=== PATIENT | female | born 1945 | race Caucasian/White ===

== ENCOUNTER 2017-04-25 18:42 | Emergency (ER) | payer MEDICARE ==
[2017-04-25 19:39] VITALS: BP 198/96
[2017-04-25] MEDS ORDERED: Diphtheria,Pertussis(Acell),Tetanus Vaccine 0.5 ML SDV IM ONE (19:55)
[2017-04-25] MEDS ORDERED: Lidocaine 1% PF 2 ML SDV INJECT ONE (19:55)
--- NOTE | 2017-04-25 20:01 | EDM.PDOC ---
ED HPI GENERAL MEDICAL PROBLEM - General Chief Complaint: General Stated Complaint: FISH HOOK Time Seen by Provider: 04/25/17 19:50 Source of Information: Reports: Patient History Limitations: Reports: No Limitations - History of Present Illness INITIAL COMMENTS - FREE TEXT/NARRATIVE: 71 yo female got a single hayley of a treble hook in the L index finger before arrival. Here for removal. Tetanus is not UTD. 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: Other (see below) (covered other hooks with tape to prevent impalement by them.) Left 2-Index finger Pain Score (Numeric/FACES): 5 - Related Data Allergies Allergy/AdvReac Type Severity Reaction Status Date / Time No Known Allergies Allergy Verified 04/25/17 19:49 Home Meds: Home Meds Simvastatin [Zocor] 10 mg PO DAILY 04/25/17 [History] Past Medical History Cardiovascular History: Reports: High Cholesterol 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 History: Reports: Dysfunctional Uterine Bleeding - Past Surgical History Female Surgical History: Reports: Hysterectomy Social & Family History - Tobacco Use Smoking Status *Q: Former Smoker Used Tobacco, but Quit: Yes Month Tobacco Last Used: 27 ED ROS GENERAL - Review of Systems Review Of Systems: See Below Constitutional: Reports: No Symptoms Skin: Reports: Wound (puncture with a fish hook in finger) Neurological: Reports: No Symptoms ED EXAM, GENERAL - Physical Exam Exam: See Below Exam Limited By: No Limitations General Appearance: Alert, WD/WN, No Apparent Distress Extremities: Other (fish hook L index finger) Neurological: Alert, Oriented, CN II-XII Intact, Normal Cognition, No Motor/ Sensory Deficits Psychiatric: Normal Affect, Normal Mood Skin Exam: Warm, Dry, Intact, Normal Color, No Rash, Other (puncture wound with retained hook to L index proximal phalanx. No active bleeding currently. No sign of infection. ) Lymphatic: No Adenopathy Course - Vital Signs Text/Narrative:: Adacel IM Local infiltration with 1.5 ml of 1% lidocaine. Last Recorded V/S: Last Vital Signs Temp 35.4 C 04/25/17 19:47 Pulse 70 04/25/17 19:47 Resp 16 04/25/17 19:47 BP 198/96 H 04/25/17 19:47 Pulse Ox 98 04/25/17 19:47 - Orders/Labs/Meds Orders: Active Orders 24 hr Category Date Time Status Vaccines to be Administered [RC] PER UNIT ROUTINE Care 04/25/17 19:55 Active Meds: Medications Discontinued Medications Generic Name Dose Route Start Last Admin Trade Name Maren PRN Reason Stop Dose Admin Bacitracin 1 dose 04/25/17 20:18 Bacitracin Oint 1 Gm TOP 04/25/17 20:19 ONETIME ONE Diphtheria/Tetanus/Acell Pertussis 0.5 ml 04/25/17 19:55 04/25/17 20:08 Adacel IM 04/25/17 19:56 0.5 ml .ONCE ONE Administration Lidocaine HCl 2 ml 04/25/17 19:55 Xylocaine-Mpf 1% INJECT 04/25/17 19:56 ONETIME ONE Lidocaine HCl 5 ml 04/25/17 20:00 04/25/17 20:09 Xylocaine-Mpf 1% INJECT 04/25/17 20:01 5 ml ONETIME ONE Administration Departure - Departure Time of Disposition: 20:20 Disposition: Home, Self-Care 01 Condition: Good Clinical Impression: Fish hook injury of finger of left hand Qualifiers: Encounter type: initial encounter Qualified Code(s): S69.92XA - Unspecified injury of left wrist, hand and finger(s), initial encounter - Discharge Information Instructions: Puncture Wound, VIS, Diphtheria, Tetanus, and Pertussis (DTaP) - CDC Referrals: PCP,None [Primary Care Provider] - Forms: ED Department Discharge Additional Instructions: Clean wound twice daily with soap and water. Dry. Apply Bacitracin ointment and a new dressing. Recheck for signs of infection. Use acetaminophen as needed for pain relief. Elevate if bleeding recurs and apply direct pressure. - My Orders Last 24 Hours: My Active Orders 04/25/17 19:55 Vaccines to be Administered [RC] PER UNIT ROUTINE - Assessment/Plan Last 24 Hours: My Active Orders 04/25/17 19:55 Vaccines to be Administered [RC] PER UNIT ROUTINE
[2017-04-25] MEDS ORDERED: Bacitracin Oint 1 GM U/D Packet TOP ONE (20:18)
== END 2017-04-25 20:31 | disposition home or self-care (01) ==
LOC: JP.ED 18:42
DX: S60.451A Superficial foreign body of left index finger, initial encounter (principal); E78.00 Pure hypercholesterolemia, unspecified; Z23 Encounter for immunization; Z90.710 Acquired absence of both cervix and uterus; W45.8XXA Other foreign body or object entering through skin, initial encounter
CPT/HCPCS: 90471; 90715; 99283; 99283-25

== ENCOUNTER 2021-04-24 18:47 | Inpatient (IN) | payer MEDICARE ==
--- NOTE | 2021-04-24 19:01 | EDM.PDOC ---
ED HPI GENERAL MEDICAL PROBLEM - General Chief Complaint: Neuro Symptoms/Deficits Stated Complaint: SLURRED SPEECH Time Seen by Provider: 04/24/21 19:00 Source of Information: Reports: Patient, RN. Denies: Old Records History Limitations: Reports: Other (no old records) - History of Present Illness INITIAL COMMENTS - FREE TEXT/NARRATIVE: 75 yo female from [facility] presents with intermittent slurred speech today. No pHx of afib. First episode lasted about 90 min and cleared by 1630h, now returned just before arrival. Took an ASA before arrival. is on Zocor for lipids. No pHx of TIA or CVA. Brother has afib. BP usually well controlled in the 120's on Atenolol. No LLOYD. No CP. Not aware of a rapid or irregular heart beat. Is aware of her speech not being normal. No issues with walking, or extremity weakness or numbness. Had some drooling with her initial episode today, not currently. Has a vacation home on [facility]. Here with her son who is an ER doctor. Onset: Today, Sudden Onset Date: 04/24/21 Onset Time: 15:00 Duration: Waxing/Waning Location: Reports: Face (drooling and slurred speech only) Quality: Reports: Other (pain not reported) Severity: Mild Improves with: Reports: Other (improved on its own earlier, now back but not as severe. 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 MACHINE: Reports: Aspirin (325 mg) - Related Data Allergies Allergy/AdvReac Type Severity Reaction Status Date / Time No Known Allergies Allergy Verified 04/25/17 19:49 Home Meds: Home Meds Aspirin 325 mg PO ASDIRECTED PRN 04/24/21 [History] atenoloL [Atenolol] 50 mg PO DAILY 04/24/21 [History] atorvaSTATin [Lipitor] 20 mg PO DAILY 04/24/21 [History] buPROPion [Wellbutrin] 150 mg PO DAILY 04/24/21 [History] Past Medical History Cardiovascular History: Reports: High Cholesterol 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 Denies: Confusion, Dizziness, Headache, Numbness, Paresthesia, Pre-Existing Deficit, Seizure, Syncope, Tingling, Difficulty Walking, Weakness, Gait Disturbance Psychiatric: Reports: No Symptoms ED EXAM, NEURO - Physical Exam Exam: See Below Exam Limited By: No Limitations General Appearance: Alert, WD/WN, No Apparent Distress Eye Exam: Bilateral Eye: Normal Inspection Ears: Normal External Exam, Normal Canal, Hearing Grossly Normal, Normal TMs Nose: Normal Inspection, No Blood Throat/Mouth: Normal Inspection, Normal Lips, Normal Oropharynx, Normal Voice, No Airway Compromise Head Exam: Atraumatic, Normocephalic Neck: Normal Inspection Respiratory/Chest: No Respiratory Distress, Lungs Clear, Normal Breath Sounds, No Accessory Muscle Use Cardiovascular: No Edema, Tachycardia, Irregularly Irregular GI/Abdominal: Soft, Non-Tender, No Distention. No: Distended Neurological: Alert, Normal Mood/Affect, Normal Dorsiflexion, CN II-XII Intact, Normal Plantar Flexion, Normal Gait, Oriented x 3, Other (speech is slightly slurred, no facial droop. Stroke scale 1.). No: No Motor/Sensory Deficits (slightly slurred speech), Babinski DTR: 2+: Bicep (R), Bicep (L), Tricep (R), Tricep (L), Patella (R), Patella (L), Achilles (R), Achilles (L) Back Exam: Normal Inspection Extremities: Normal Inspection, Normal Range of Motion, Non-Tender, No Pedal Edema Psychiatric: Normal Affect, Normal Mood Skin Exam: Warm, Dry, Intact, Normal Color, No Rash Course - Vital Signs Text/Narrative:: [facility] in [place], [place] called @ 2114h, Dr. Ramirez(neuro) called back at Dr. Damon called @ Last Recorded V/S: Last Vital Signs Temp 35.9 C L 07/24/21 18:58 Pulse 130 H 04/24/21 21:26 Resp 27 H 04/24/21 21:25 BP 146/89 H 04/24/21 21:26 Pulse Ox 92 L 04/24/21 21:25 - Orders/Labs/Meds Orders: Active Orders 24 hr Category Date Time Status Cardiac Monitoring [RC] .As Directed Care 04/24/21 18:59 Active Iopamidol [Isovue-370 (76%)] Med 04/24/21 19:30 Active 100 ml IV . DIRECTED Sodium Chloride 0.9% [Normal Saline] 100 ml Med 04/24/21 19:30 Active IV ASDIRECTED Sodium Chloride 0.9% [Saline Flush] Med 04/24/21 19:12 Active 10 ml FLUSH ASDIRECTED PRN Saline Lock Insert [OM.PC] Routine Oth 04/24/21 19:12 Ordered Medication Orders Sodium Chloride (Normal Saline) 100 mls @ 3.5 mls/sec IV ASDIRECTED CAROL Last Admin: 04/24/21 20:02 Dose: 4 mls/sec Documented by: BINDU Iopamidol (Iopamidol 755 Mg/Ml 100 Ml Bottle) 100 ml IV . DIRECTED CAROL Last Admin: 04/24/21 20:01 Dose: 100 ml Documented by: BINDU Sodium Chloride (Sodium Chloride 0.9% 10 Ml Syringe) 10 ml FLUSH ASDIRECTED PRN PRN Reason: Keep Vein Open Last Admin: 04/24/21 19:18 Dose: 10 ml Documented by: JACKELINE Labs: Laboratory Tests 04/24/21 04/24/21 Range/Units 18:59 19:16 WBC 8.2 (4.5-11.0) K/uL RBC 4.48 (3.30-5.50) M/uL Hgb 11.3 L (12.0-15.0) g/dL Hct 36.4 (36.0-48.0) % MCV 81 (80-98) fL MCH 25 L (27-31) pg MCHC 31 L (32-36) % Plt Count 401 H (150-400) K/uL Sodium 141 (140-148) mmol/L Potassium 4.1 (3.6-5.2) mmol/L Chloride 105 (100-108) mmol/L Carbon Dioxide 27 (21-32) mmol/L Anion Gap 9.2 (5.0-14.0) mmol/L BUN 25 H (7-18) mg/dL Creatinine 1.0 (0.6-1.0) mg/dL Est Cr Clr Drug Dosing 43.07 mL/min Estimated GFR (MDRD) 54 L (>60) Glucose 128 H (74-106) mg/dL Calcium 8.7 (8.5-10.1) mg/dL Troponin I < 0.017 (0.000-0.056) ng/mL TSH, Ultra Sensitive 1.676 (0.358-3.740) uIU/mL Meds: Medications Generic Name Dose Route Start Last Admin Trade Name Maren PRN Reason Stop Dose Admin Sodium Chloride 100 mls @ 3.5 mls/sec 04/24/21 19:30 04/24/21 20:02 Normal Saline IV 4 mls/sec ASDIRECTED CAROL Administration Iopamidol 100 ml 04/24/21 19:30 04/24/21 20:01 Iopamidol 755 Mg/Ml 100 Ml Bottle IV 100 ml . DIRECTED CAROL Administration Sodium Chloride 10 ml 04/24/21 19:12 04/24/21 19:18 Sodium Chloride 0.9% 10 Ml Syringe FLUSH 10 ml ASDIRECTED PRN Administration Keep Vein Open Discontinued Medications Generic Name Dose Route Start Last Admin Trade Name Maren PRN Reason Stop Dose Admin Apixaban 5 mg 04/24/21 21:34 04/24/21 21:49 Apixaban 5 Mg Tab PO 04/24/21 21:35 5 mg ONETIME ONE Administration Atenolol 25 mg 04/24/21 19:18 04/24/21 20:17 Atenolol 25 Mg Tab PO 04/24/21 19:19 25 mg ONETIME ONE Administration Atenolol 25 mg 04/24/21 21:19 04/24/21 21:26 Atenolol 25 Mg Tab PO 04/24/21 21:20 25 mg ONETIME ONE Administration Sodium Chloride 10 ml 04/24/21 19:17 04/24/21 20:01 Sodium Chloride 0.9% 10 Ml Syringe FLUSH 04/24/21 19:18 10 ml ONETIME ONE Administration - Radiology Interpretation Free Text/Narrative:: Head CT scan- IMPRESSION: 1. No acute intracranial hemorrhage. 2. No mass lesions or shift of the midline structures. 3. Evidence of small vessel disease. Please note that all CT scans at this facility use dose modulation, iterative reconstruction, and/or weight-based dosing when appropriate to reduce radiation dose to as low as reasonably achievable. Dictated by Arash Poe MD @ 04/24/2021 8:04:31 PM Angio Head and Neck- Impression: HEAD CTA: 1. 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 No hemodynamically significant stenosis within the posterior circulation. 2. No hemodynamically significant stenosis anterior circulation. NECK CTA: 1. No hemodynamically significant extracranial carotid or vertebral stenosis. Dictated by Frantz Almeida MD @ 04/24/2021 9:01:[address] Results Date: 04/24/21 CT Results Time: 20:17 Departure - Departure Time of Disposition: 22:00 Disposition: Admitted As Inpatient 65 Condition: Fair Clinical Impression: Atrial fibrillation with RVR CVA (cerebral vascular accident) Qualifiers: CVA mechanism: unspecified Qualified Code(s): I63.9 - Cerebral infarction, unspecified - Discharge Information *PRESCRIPTION DRUG MONITORING PROGRAM REVIEWED*: Not Applicable *COPY OF PRESCRIPTION DRUG MONITORING REPORT IN PATIENT TIFFANIE: Not Applicable Referrals: PCP,None [Primary Care Provider] - Forms: ED Department Discharge Sepsis Event Note (ED) - Focused Exam Vital Signs: Vital Signs Temp Pulse Pulse Resp BP BP Pulse Ox 04/24/21 21:26 130 H 146/89 H 04/24/21 21:25 27 H 146/89 H 92 L 04/24/21 21:19 66 25 H 152/94 H 92 L 04/24/21 20:39 91 22 H 159/94 H 93 L 04/24/21 20:25 20 159/94 H 94 L 04/24/21 20:17 120 H 21 H 157/85 H 157/85 H 94 L 04/24/21 19:22 83 126/86 04/24/21 18:58 35.9 C L 127 H 22 H 156/82 H 97 - My Orders Last 24 Hours: My Active Orders 04/24/21 18:59 Cardiac Monitoring [RC] .As Directed 04/24/21 19:12 Sodium Chloride 0.9% [Saline Flush] 10 ml FLUSH ASDIRECTED PRN Saline Lock Insert [OM.PC] Routine 04/24/21 19:30 Iopamidol [Isovue-370 (76%)] 100 ml IV . DIRECTED Sodium Chloride 0.9% [Normal Saline] 100 ml IV ASDIRECTED - Assessment/Plan Last 24 Hours: My Active Orders 04/24/21 18:59 Cardiac Monitoring [RC] .As Directed 04/24/21 19:12 Sodium Chloride 0.9% [Saline Flush] 10 ml FLUSH ASDIRECTED PRN Saline Lock Insert [OM.PC] Routine 04/24/21 19:30 Iopamidol [Isovue-370 (76%)] 100 ml IV . DIRECTED Sodium Chloride 0.9% [Normal Saline] 100 ml IV ASDIRECTED
[2021-04-24] MEDS ORDERED: Sodium Chloride 0.9% 10 ML Syringe FLUSH PRN (19:12)
[2021-04-24] MEDS ORDERED: Sodium Chloride 0.9% 10 ML Syringe FLUSH ONE (19:17)
[2021-04-24] MEDS ORDERED: Atenolol 25 MG Tab PO ONE ×2 (19:18→21:19)
[2021-04-24] MEDS ORDERED: Iopamidol 755 Mg/ML 100 ML Bottle IV SCH (19:30)
[2021-04-24] MEDS ORDERED: Sodium Chloride 0.9% 100 ML IV SCH (19:30)
--- NOTE | 2021-04-24 20:06 | CRLCT ---
For Patients: As a result of the Century Cures Act, medical imaging exams and procedure reports are released immediately into your electronic medical record. You may view this report before your referring provider. If you have questions, please contact your health care provider. INDICATION: Slurred speech. COMPARISON: None. TECHNIQUE: CT head without intravenous contrast; coronal and sagittal reformats. FINDINGS: Mild brain atrophy. No intracranial hemorrhage. No mass lesions or shift of the midline structures. The calvarium is unremarkable. Periventricular low densities secondary to small vessel disease. IMPRESSION: 1. No acute intracranial hemorrhage. 2. No mass lesions or shift of the midline structures. 3. Evidence of small vessel disease. Please note that all CT scans at this facility use dose modulation, iterative reconstruction, and/or weight-based dosing when appropriate to reduce radiation dose to as low as reasonably achievable. Dictated by Arash Poe MD @ 04/24/2021 8:04:[address] Arash Poe @ Apr 24 2021 8:04PM
--- NOTE | 2021-04-24 21:02 | CRLCT ---
For Patients: As a result of the Century Cures Act, medical imaging exams and procedure reports are released immediately into your electronic medical record. You may view this report before your referring provider. If you have questions, please contact your health care provider. INDICATION: Acute stroke, slurred speech. TECHNIQUE: After standard noncontrast head CT, high resolution axial CT images acquired through the head and neck following rapid intravenous administration of iodinated contrast. Multiplanar MIPS of cranial and cervical vasculature performed. FINDINGS: Noncontrast head CT: There is no intracranial hemorrhage or fluid collection. The hodge-white matter differentiation is maintained. The ventricles are of normal morphology. The basal cisterns are clear. CTA head: There is normal filling of the intracranial vasculature; i.e. there is no large vessel occlusion or significant intracranial stenosis. There is no cerebral aneurysm or evidence for vascular malformation. CTA neck: Carotid arteries: There is atherosclerotic plaque. There is no significant stenosis by NASCET criteria. There is no evidence for dissection. Vertebral arteries: There is no significant stenosis. There is no evidence for dissection. The soft tissues of the neck are within normal limits. The cervical spine is in normal alignment. Degenerative changes are noted in the cervical spine. The lung apices are clear. IMPRESSION: No large vessel occlusion. No acute intracranial abnormality at CT/CCA. Carotid atherosclerotic disease without significant stenosis. Joaquin Hernandez MD Neurointerventional [employer] [facility] [facility] Please note that all CT scans at this facility use dose modulation, iterative reconstruction, and/or weight-based dosing when appropriate to reduce radiation dose to as low as reasonably achievable. Dictated by Joaquin Hernandez MD @ 04/25/2021 4:14:[address] Joaquin Hernandez @ Apr 25 2021 4:14AM
[2021-04-24] MEDS ORDERED: Apixaban 5 MG Tab PO ONE (21:34)
[2021-04-24] MEDS ORDERED: diphenhydrAMINE 25 MG Cap PO PRN (22:42)
[2021-04-24] MEDS ORDERED: Melatonin 3 MG Tab PO PRN (22:42)
[2021-04-24] MEDS ORDERED: Acetaminophen 325 MG Tab PO PRN (22:42)
[2021-04-24] MEDS ORDERED: Morphine 2 MG/ML SYRINGE IVPUSH PRN (22:42)
[2021-04-24] MEDS ORDERED: Ondansetron 4 MG Tab.DIS PO PRN (22:42)
[2021-04-24] MEDS ORDERED: Bisacodyl 5 MG Tab PO PRN (22:42)
[2021-04-24] MEDS ORDERED: LORazepam 2 MG/ML SDV IV PRN (22:42)
[2021-04-24] MEDS ORDERED: oxyCODONE 5 MG Tab PO PRN (22:42)
[2021-04-24] MEDS ORDERED: Docusate Sodium 100 MG Cap PO PRN (22:42)
[2021-04-24] MEDS ORDERED: Albuterol 0.083% 2.5 MG/3 ML Neb Soln NEB PRN (22:42)
[2021-04-24] MEDS ORDERED: Sodium Chloride 0.9% 1,000 ML IV SCH (22:42)
--- NOTE | 2021-04-24 23:04 | PCM.HP.2 ---
H&P History of Present Illness - General Date of Service: 04/24/21 Admit Problem/Dx: Admission Diagnosis/Problem Admission Diagnosis/Problem Atrial fibrillation with rapid ventricular response Source of Information: Patient, Family (Dr. Brown and [place]) History Limitations: Reports: No Limitations - History of Present Illness Initial Comments - Free Text/Narative: Chief Complaint: Intermittent slurred speech This is a 75 year old female in general good health, reports to ER with her Son Dr. Brown (part-time at [facility]) and [place]. She reports she had a busy day - hosting her family and 6 teenage girls at their [place] home on [address]. She finally got to sit down at about 3 pm and notice she was drooling and very speech was impaired. She waited about an hour before telling her Son about her symptoms. They called for an ambulance and getting ready when all of her symptoms resolved. They cancelled the ambulance and drove to ER. She got here at 5 pm and her slurred speech returned. A short time later symptoms resolved and she reports feeling fine. Denies any chest pain, chest pressure, headache, shortness of breath or any other symptoms Past Medical Hx. November 2020- unexplained shortness of breath during the night. She had Echo and Stress test and EKG- which were all normal. Medications Wellbutrin 150 mg daily ASA 325 mg daily Lipitor 20 mg daily Atenolol 50 mg daily Onset of Symptoms: Reports: Today Symptom Onset Date: 04/24/21 Symptom Onset Time: 15:00 Duration of Symptoms: Reports: Waxing/Waning Location: Reports: Generalized (intermittent slurred speech.) Improves with: Reports: None Worsens with: Reports: None Associated Symptoms: Reports: No Other Symptoms - Related Data Allergies/Adverse Reactions: Allergies Allergy/AdvReac Type Severity Reaction Status Date / Time No Known Allergies Allergy Verified 04/25/17 19:49 Home Medications: Home Meds Aspirin 325 mg PO ASDIRECTED PRN 04/24/21 [History] atenoloL [Atenolol] 50 mg PO DAILY 04/24/21 [History] atorvaSTATin [Lipitor] 20 mg PO DAILY 04/24/21 [History] buPROPion [Wellbutrin] 150 mg PO DAILY 04/24/21 [History] Past Medical History Cardiovascular History: Reports: High Cholesterol LEASING AGENT History: Reports: Dysfunctional Uterine Bleeding - Past Surgical History Female Surgical History: Reports: Hysterectomy Social & Family History - Tobacco Use Tobacco Use Status *Q: Never Tobacco User - Caffeine Use Caffeine Use: Reports: None - Recreational Drug Use Recreational Drug Use: No - Living Situation & Occupation Living situation: Reports: 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 Lives with Delmar in [place], [place]. and has a summer [place] home on [place], [place]. Two Son Pool and Stephan) H&P Review of Systems - Review of Systems: Review Of Systems: See Below General: Reports: No Symptoms HEENT: Reports: No Symptoms, Glasses Pulmonary: Reports: No Symptoms Cardiovascular: Reports: No Symptoms Gastrointestinal: Reports: No Symptoms Genitourinary: Reports: No Symptoms Musculoskeletal: Reports: No Symptoms Skin: Reports: No Symptoms Psychiatric: Reports: No Symptoms Neurological: Reports: No Symptoms Hematologic/Lymphatic: Reports: No Symptoms Immunologic: Reports: No Symptoms Exam - Exam Exam: See Below - Vital Signs Vital Signs: Last Vital Signs Temp 96.7 F L 04/24/21 18:58 Pulse 83 04/24/21 22:21 Resp 24 H 04/24/21 22:21 BP 145/80 H 04/24/21 22:21 Pulse Ox 93 L 04/24/21 22:21 Weight: 170 lb - Exam Quality Assessment: DVT Prophylaxis General: Alert, Oriented, Cooperative, Other (neat and well groomed, pleasant adult female) HEENT: PERRLA, Hearing Intact, Mucosa Moist & [place], Nares Patent, Normal Nasal Septum, Posterior Pharynx Clear, Conjunctiva Clear, EOMI, EACs Clear, TMs Clear Neck: Supple Lungs: Clear to Auscultation, Normal Respiratory Effort Cardiovascular: Irregular Rhythm GI/Abdominal Exam: Normal Bowel Sounds, Soft, Non-Tender, No Organomegaly, No Distention, No Abnormal Bruit, No Mass, Pelvis Stable (Female) Exam: Deferred Rectal (Female) Exam: Deferred Back Exam: Normal Inspection, Full Range of Motion, NT Extremities: Normal Inspection, Normal Range of Motion, Non-Tender, No Pedal Edema, Normal Capillary Refill Peripheral Pulses: 2+: Radial (L), Radial (R), Dorsalis Pedis (L), Dorsalis Pedis (R) Skin: Warm, Dry, Intact Neurological: Cranial Nerves Intact, Reflexes Equal Bilateral, Strength Equal Bilateral Neuro Extensive - Mental Status: Alert, Oriented x3, Normal Mood/Affect, Normal Cognition Neuro Extensive - Motor, Sensory, Reflexes: CN II-XII Intact, Normal Gait, Normal Reflexes Psychiatric: Alert, Normal Affect, Normal Mood - Patient Data Lab Results Last 24 hrs: Laboratory Results - last 24 hr 04/24/21 04/24/21 04/24/21 Range/Units 18:59 19:16 22:07 WBC 8.2 (4.5-11.0) K/uL RBC 4.48 (3.30-5.50) M/uL Hgb 11.3 L (12.0-15.0) g/dL Hct 36.4 (36.0-48.0) % MCV 81 (80-98) fL MCH 25 L (27-31) pg MCHC 31 L (32-36) % Plt Count 401 H (150-400) K/uL Sodium 141 (140-148) mmol/L Potassium 4.1 (3.6-5.2) mmol/L Chloride 105 (100-108) mmol/L Carbon Dioxide 27 (21-32) mmol/L Anion Gap 9.2 (5.0-14.0) mmol/L BUN 25 H (7-18) mg/dL Creatinine 1.0 (0.6-1.0) mg/dL Est Cr Clr Drug Dosing 43.07 mL/min Estimated GFR (MDRD) 54 L (>60) Glucose 128 H (74-106) mg/dL Calcium 8.7 (8.5-10.1) mg/dL Troponin I < 0.017 (0.000-0.056) ng/mL Amylase (25-115) U/L Lipase (73-393) U/L TSH, Ultra Sensitive 1.676 (0.358-3.740) uIU/mL Urine Color Yellow (YELLOW) Urine Appearance Clear (CLEAR) Urine pH 5.5 (5.0-8.0) Ur Specific [place] 1.015 (1.008-1.030) Urine Protein Negative (NEGATIVE) mg/dL Urine Glucose (UA) Negative (NEGATIVE) mg/dL Urine Ketones Negative (NEGATIVE) mg/dL Urine Occult Blood Trace-intact H (NEGATIVE) Urine Nitrite Negative (NEGATIVE) Urine Bilirubin Negative (NEGATIVE) Urine Urobilinogen 0.2 (0.2-1.0) EU/dL Ur Leukocyte Esterase Negative (NEGATIVE) Urine RBC 0-5 (0-5) Urine WBC 0-5 (0-5) Ur Epithelial Cells Rare Amorphous Sediment Not seen Urine Bacteria Few Urine Mucus Not seen 04/24/21 Range/Units 22:07 WBC (4.5-11.0) K/uL RBC (3.30-5.50) M/uL Hgb (12.0-15.0) g/dL Hct (36.0-48.0) % MCV (80-98) fL MCH (27-31) pg MCHC (32-36) % Plt Count (150-400) K/uL Sodium (140-148) mmol/L Potassium (3.6-5.2) mmol/L Chloride (100-108) mmol/L Carbon Dioxide (21-32) mmol/L Anion Gap (5.0-14.0) mmol/L BUN (7-18) mg/dL Creatinine (0.6-1.0) mg/dL Est Cr Clr Drug Dosing mL/min Estimated GFR (MDRD) (>60) Glucose (74-106) mg/dL Calcium (8.5-10.1) mg/dL Troponin I (0.000-0.056) ng/mL Amylase 61 (25-115) U/L Lipase 138 (73-393) U/L TSH, Ultra Sensitive (0.358-3.740) uIU/mL Urine Color (YELLOW) Urine Appearance (CLEAR) Urine pH (5.0-8.0) Ur Specific [place] (1.008-1.030) Urine Protein (NEGATIVE) mg/dL Urine Glucose (UA) (NEGATIVE) mg/dL Urine Ketones (NEGATIVE) mg/dL Urine Occult Blood (NEGATIVE) Urine Nitrite (NEGATIVE) Urine Bilirubin (NEGATIVE) Urine Urobilinogen (0.2-1.0) EU/dL Ur Leukocyte Esterase (NEGATIVE) Urine RBC (0-5) Urine WBC (0-5) Ur Epithelial Cells Amorphous Sediment Urine Bacteria Urine Mucus Result Diagrams: 04/24/21 18:59 04/24/21 19:16 Sepsis Event Note - Evaluation Sepsis Screening Result: No Definite Risk - Focused Exam Vital Signs: Vital Signs Temp Pulse Pulse Resp BP BP Pulse Ox 04/24/21 22:21 83 24 H 145/80 H 93 L 04/24/21 21:26 130 H 146/89 H 04/24/21 21:25 27 H 146/89 H 92 L 04/24/21 21:19 66 25 H 152/94 H 92 L 04/24/21 20:39 91 22 H 159/94 H 93 L 04/24/21 20:25 20 159/94 H 94 L 04/24/21 20:17 120 H 21 H 157/85 H 157/85 H 94 L 04/24/21 19:22 83 126/86 04/24/21 18:58 96.7 F L 127 H 22 H 156/82 H 97 - Problem List (1) Atrial fibrillation with RVR SNOMED Code(s): 517274783687632 ICD Code: I48.91 - UNSPECIFIED ATRIAL FIBRILLATION Status: Acute Priority: High Current Visit: Yes (2) CVA (cerebral vascular accident) SNOMED Code(s): 994957467 ICD Code: I63.9 - CEREBRAL INFARCTION, UNSPECIFIED Status: Acute Priority: High Current Visit: Yes Qualifiers: CVA mechanism: unspecified Qualified Code(s): I63.9 - Cerebral infarction, unspecified Problem List Initiated/Reviewed/Updated: Yes Orders Last 24hrs: Active Orders 24 hr Category Date Time Status Cardiac Monitoring [RC] .As Directed Care 04/24/21 18:59 Active Cardiac Monitoring [RC] CONTINUOUS Care 04/24/21 22:42 Active Intake and Output [RC] QSHIFT Care 04/24/21 22:42 Active Neuro Check [RC] Q4HR Care 04/24/21 22:42 Active Notify Provider Vital Signs [RC] ASDIRECTED Care 04/24/21 22:42 Active Oxygen Therapy [RC] PRN Care 04/24/21 22:42 Active Pulse Oximetry [RC] PRN Care 04/24/21 22:42 Active RT Aerosol Therapy [RC] ASDIRECTED Care 04/24/21 22:42 Active Up With Assistance [RC] ASDIRECTED Care 04/24/21 22:42 Active VTE/DVT Education [RC] Per Unit Routine Care 04/24/21 22:42 Active Vital Signs [RC] Q4H Care 04/24/21 22:42 Active Spiritual Care Follow Up [CONS] Routine Cons 04/24/21 22:52 Ordered Regular Diet [DIET] Diet 04/24/21 Dinner Active CBC WITH AUTO DIFF [HEME] AM Lab 04/25/21 05:11 Ordered COMPREHENSIVE METABOLIC PN,CMP [CHEM] AM Lab 04/25/21 05:11 Ordered Acetaminophen [TylenoL] Med 04/24/21 22:42 Active 650 mg PO Q4H PRN Albuterol [Proventil Neb Soln] Med 04/24/21 22:42 Active 2.5 mg NEB Q4H PRN Docusate Sodium [Colace] Med 04/24/21 22:42 Active 100 mg PO BID PRN Iopamidol [Isovue-370 (76%)] Med 04/24/21 19:30 Active 100 ml IV . DIRECTED LORazepam [Ativan] Med 04/24/21 22:42 Active 1 mg IV Q6H PRN Melatonin Med 04/24/21 22:42 Active 6 mg PO BEDTIME PRN Morphine Med 04/24/21 22:42 Active 2 mg IVPUSH Q2H PRN Ondansetron [Zofran ODT] Med 04/24/21 22:42 Active 4 mg PO Q6H PRN Pantoprazole [ProTONIX IV] Med 04/25/21 09:00 Active 40 mg IV DAILY Sodium Chloride 0.9% [Normal Saline] 1,000 ml Med 04/24/21 22:42 Active IV ASDIRECTED Sodium Chloride 0.9% [Normal Saline] 100 ml Med 04/24/21 19:30 Active IV ASDIRECTED Sodium Chloride 0.9% [Saline Flush] Med 04/24/21 19:12 Active 10 ml FLUSH ASDIRECTED PRN atenoloL [Tenormin] Med 04/25/21 09:00 Active 50 mg PO DAILY atorvaSTATin [Lipitor] Med 04/25/21 09:00 Active 20 mg PO DAILY bisacodyL [Dulcolax] Med 04/24/21 22:42 Active 5 mg PO DAILY PRN buPROPion [Wellbutrin] Med 04/25/21 09:00 Active 150 mg PO DAILY diphenhydrAMINE [Benadryl] Med 04/24/21 22:42 Active 25 mg PO BEDTIME PRN oxyCODONE Med 07/24/21 22:42 Active 5 mg PO Q4H PRN Saline Lock Insert [OM.PC] Routine Oth 04/24/21 19:12 Ordered Resuscitation Status Routine Resus Stat 04/24/21 22:16 Ordered Medication Orders Acetaminophen (Acetaminophen 325 Mg Tab) 650 mg PO Q4H PRN PRN Reason: Pain (Mild 1-3)/fever Albuterol (Albuterol 0.083% 2.5 Mg/3 Ml Neb Soln) 2.5 mg NEB Q4H PRN PRN Reason: Shortness Of Breath/wheezing Atenolol (Atenolol 25 Mg Tab) 50 mg PO DAILY [facility]OL Atorvastatin Calcium (Atorvastatin 20 Mg Tab) 20 mg PO DAILY [facility] Bisacodyl (Bisacodyl 5 Mg Tab) 5 mg PO DAILY PRN PRN Reason: Constipation Bupropion HCl (Bupropion 100 Mg Tab) 150 mg PO DAILY [facility] Diphenhydramine HCl (Diphenhydramine 25 Mg Cap) 25 mg PO BEDTIME PRN PRN Reason: Insomnia Docusate Sodium (Docusate Sodium 100 Mg Cap) 100 mg PO BID PRN PRN Reason: Constipation Sodium Chloride (Normal Saline) 100 mls @ 3.5 mls/sec IV ASDIRECTED [facility] Last Admin: 04/24/21 20:02 Dose: 4 mls/sec Documented by: BINDU Sodium Chloride (Normal Saline) 1,000 mls @ 125 mls/hr IV ASDIRECTED [facility] Iopamidol (Iopamidol 755 Mg/Ml 100 Ml Bottle) 100 ml IV . DIRECTED [facility] Last Admin: 04/24/21 20:01 Dose: 100 ml Documented by: BINDU Lorazepam (Lorazepam 2 Mg/Ml Sdv) 1 mg IV Q6H PRN PRN Reason: Nausea/Vomiting Melatonin (Melatonin 3 Mg Tab) 6 mg PO BEDTIME PRN PRN Reason: Insomnia Morphine Sulfate (Morphine 2 Mg/Ml Syringe) 2 mg IVPUSH Q2H PRN PRN Reason: Pain (severe 7-10) Ondansetron HCl (Ondansetron 4 Mg Tab.Dis) 4 mg PO Q6H PRN PRN Reason: Nausea able to take PO Oxycodone HCl (Oxycodone 5 Mg Tab) 5 mg PO Q4H PRN PRN Reason: Pain (moderate 4-6) Pantoprazole Sodium (Pantoprazole 40 Mg Vial) 40 mg IV DAILY CAROL Sodium Chloride (Sodium Chloride 0.9% 10 Ml Syringe) 10 ml FLUSH ASDIRECTED PRN PRN Reason: Keep Vein Open Last Admin: 04/24/21 19:18 Dose: 10 ml Documented by: JACKELINE Assessment/Plan Comment:: Assessment/Plan Comment:: ASSESSMENT AND PLAN: ATRIAL FIB WITH RVR- CVA This is a 75 year old female in general good health, reports to ER with her Son Dr. Brown (part-time at [facility]) and [place]. She reports she had a busy day - hosting her family and 6 teenage girls at their [place] home on [address]. She finally got to sit down at about 3 pm and notice she was drooling and slurry speech was noticed. She waited about an hour before telling her Son about her symptoms. They called for an ambulance and getting ready when all of her symptoms resolved. They cancelled the ambulance and drove to ER. She got here at 5 pm and her slurred speech returned. A short time later symptoms resolved and she reports feeling fine. No symptoms at time of admission Denies any chest pain, chest pressure, headache, shortness of breath or any other symptoms Past Medical Hx. November 2020- unexplained shortness of breath during the night. She had Echo and Stress test and EKG- which were all normal. In Emergency room was given Atenolol 50 mg., Eliquist [address] CT, Head and Neck CTA- all are negative for any acute process. Consult to [facility], Neuro. ATRIAL FIB WITH RVR- Mrs. Brown has no prior history of Atrial Fib. Denies any history of IA or cardiac event in the past. -IV fluids- Normal Saline 125 ml/hr -Telemetry- call for heart rate >140 -Continue Outpatient medication- Lipitor 20 mg daily and Atenolol 50 mg daily. due in am. -Supplemental oxygen as needed -am labs CBC, CMP CVA- sudden onset of slurred speech with drooling at 3 pm today, resolved at home and return at the ER. CT of head negative, CTA of neck and Head neg. -Neuro checks every 4 hours MAINTENANCE ISSUES -DVT prophylaxis; Eliquis 5 mg po bid -GI prophylaxis; IV Protonix 40 mg daily -Roth catheter; not indicated -Nutrition; regular diet -consult Spiritual for communion CODE STATUS-FULL CODE ADMISSION STATUS-patient will be admitted to inpatient status, expect at least a 2 night hospital stay for evaluation and management of problems as outlined above. At the time of this admission I do not reasonably expected evaluation and management of this problem will require more than a 96 hour hospital stay. DISPOSITION-anticipate discharge to home after the hospital stay. PRIMARY CARE PROVIDER-patient is from [facility] and receives her primary care there - Mortality Measure Prognosis:: Good
[2021-04-25] MEDS ORDERED: Pantoprazole 40 MG Tab.CR PO SCH (07:30)
[2021-04-25] MEDS: atorvaSTATin 20 MG Tab PO SCH (08:43)
[2021-04-25] MEDS: buPROPion 150 MG Tab.ER PO SCH (08:44)
[2021-04-25] MEDS ORDERED: Pantoprazole 40 MG Vial IV SCH (09:00)
[2021-04-25] MEDS ORDERED: buPROPion 100 MG Tab PO SCH (09:00)
[2021-04-25] MEDS ORDERED: Atenolol 25 MG Tab PO SCH (09:00)
[2021-04-25] MEDS ORDERED: Atenolol 25 MG Tab PO ONE (10:00)
[2021-04-25] MEDS: Diltiazem IR 30 MG Tab PO SCH ×3 (10:03→21:57)
[2021-04-25] MEDS: Apixaban 5 MG Tab PO SCH ×2 (10:03→21:57)
--- NOTE | 2021-04-25 10:20 | PCM.PN ---
- General Info Date of Service: 04/25/21 Subjective Update: Ms. Brown has been stable since admission. Dysphagia has resolved and she denies any other neurologic symptoms. Heart rate has intermittently been elevated, running between [address] scan of the head showed no obvious bleeding or other significant acute abnormalities. CTA showed no evidence of significant arterial stenosis, there was evidence of small vessel disease. Functional Status: Reports: Tolerating Diet, Ambulating, Urinating - Review of Systems General: Reports: No Symptoms Pulmonary: Reports: No Symptoms Cardiovascular: Reports: No Symptoms Gastrointestinal: Reports: No Symptoms Neurological: Reports: No Symptoms - Patient Data Vitals - Most Recent: Last Vital Signs Temp 96.4 F L 04/25/21 07:24 Pulse 98 04/25/21 10:04 Resp 16 04/25/21 07:24 BP 124/67 04/25/21 10:04 Pulse Ox 94 L 04/25/21 07:46 Weight - Most Recent: 181 lb I&O - Last 24 Hours: Intake & Output 04/24/21 04/25/21 04/25/21 22:59 06:59 14:59 Intake Total 240 Output Total 300 Balance -60 Lab Results Last 24 Hours: Laboratory Results - last 24 hr 04/24/21 04/24/21 04/24/21 Range/Units 18:59 19:16 22:07 WBC 8.2 (4.5-11.0) K/uL RBC 4.48 (3.30-5.50) M/uL Hgb 11.3 L (12.0-15.0) g/dL Hct 36.4 (36.0-48.0) % MCV 81 (80-98) fL MCH 25 L (27-31) pg MCHC 31 L (32-36) % Plt Count 401 H (150-400) K/uL Neut % (Auto) (36-66) % Lymph % (Auto) (24-44) % [place] % (Auto) (2-6) % Eos % (Auto) (2-4) % Baso % (Auto) (0-1) % Sodium 141 (140-148) mmol/L Potassium 4.1 (3.6-5.2) mmol/L Chloride 105 (100-108) mmol/L Carbon Dioxide 27 (21-32) mmol/L Anion Gap 9.2 (5.0-14.0) mmol/L BUN 25 H (7-18) mg/dL Creatinine 1.0 (0.6-1.0) mg/dL Est Cr Clr Drug Dosing 43.07 mL/min Estimated GFR (MDRD) 54 L (>60) Glucose 128 H (74-106) mg/dL Calcium 8.7 (8.5-10.1) mg/dL Total Bilirubin (0.2-1.0) mg/dL AST (15-37) U/L ALT (12-78) U/L Alkaline Phosphatase (46-116) U/L Troponin I < 0.017 (0.000-0.056) ng/mL Total Protein (6.4-8.2) g/dL Albumin (3.4-5.0) g/dL Globulin (2.3-3.5) g/dL Albumin/Globulin Ratio (1.2-2.2) Amylase (25-115) U/L Lipase (73-393) U/L TSH, Ultra Sensitive 1.676 (0.358-3.740) uIU/mL Urine Color Yellow (YELLOW) Urine Appearance Clear (CLEAR) Urine pH 5.5 (5.0-8.0) Ur Specific [place] 1.015 (1.008-1.030) Urine Protein Negative (NEGATIVE) mg/dL Urine Glucose (UA) Negative (NEGATIVE) mg/dL Urine Ketones Negative (NEGATIVE) mg/dL Urine Occult Blood Trace-intact H (NEGATIVE) Urine Nitrite Negative (NEGATIVE) Urine Bilirubin Negative (NEGATIVE) Urine Urobilinogen 0.2 (0.2-1.0) EU/dL Ur Leukocyte Esterase Negative (NEGATIVE) Urine RBC 0-5 (0-5) Urine WBC 0-5 (0-5) Ur Epithelial Cells Rare Amorphous Sediment Not seen Urine Bacteria Few Urine Mucus Not seen 04/24/21 04/25/21 04/25/21 Range/Units 22:07 04:10 04:10 WBC 6.9 (4.5-11.0) K/uL RBC 4.21 (3.30-5.50) M/uL Hgb 10.6 L (12.0-15.0) g/dL Hct 34.6 L (36.0-48.0) % MCV 82 (80-98) fL MCH 25 L (27-31) pg MCHC 31 L (32-36) % Plt Count 367 (150-400) K/uL Neut % (Auto) 62.3 (36-66) % Lymph % (Auto) 24.8 (24-44) % [place] % (Auto) 11.2 H (2-6) % Eos % (Auto) 1.3 L (2-4) % Baso % (Auto) 0.4 (0-1) % Sodium 143 (140-148) mmol/L Potassium 4.1 (3.6-5.2) mmol/L Chloride 108 (100-108) mmol/L Carbon Dioxide 28 (21-32) mmol/L Anion Gap 7.4 (5.0-14.0) mmol/L BUN 21 H (7-18) mg/dL Creatinine 0.9 (0.6-1.0) mg/dL Est Cr Clr Drug Dosing 47.85 mL/min Estimated GFR (MDRD) > 60 (>60) Glucose 98 (74-106) mg/dL Calcium 8.4 L (8.5-10.1) mg/dL Total Bilirubin 0.9 (0.2-1.0) mg/dL AST 25 (15-37) U/L ALT 32 (12-78) U/L Alkaline Phosphatase 145 H (46-116) U/L Troponin I (0.000-0.056) ng/mL Total Protein 5.8 L (6.4-8.2) g/dL Albumin 2.8 L (3.4-5.0) g/dL Globulin 3.0 (2.3-3.5) g/dL Albumin/Globulin Ratio 0.9 L (1.2-2.2) Amylase 61 (25-115) U/L Lipase 138 (73-393) U/L TSH, Ultra Sensitive (0.358-3.740) uIU/mL Urine Color (YELLOW) Urine Appearance (CLEAR) Urine pH (5.0-8.0) Ur Specific [place] (1.008-1.030) Urine Protein (NEGATIVE) mg/dL Urine Glucose (UA) (NEGATIVE) mg/dL Urine Ketones (NEGATIVE) mg/dL Urine Occult Blood (NEGATIVE) Urine Nitrite (NEGATIVE) Urine Bilirubin (NEGATIVE) Urine Urobilinogen (0.2-1.0) EU/dL Ur Leukocyte Esterase (NEGATIVE) Urine RBC (0-5) Urine WBC (0-5) Ur Epithelial Cells Amorphous Sediment Urine Bacteria Urine Mucus Med Orders - Current: Current Medications Acetaminophen (Acetaminophen 325 Mg Tab) 650 mg PO Q4H PRN PRN Reason: Pain (Mild 1-3)/fever Albuterol (Albuterol 0.083% 2.5 Mg/3 Ml Neb Soln) 2.5 mg NEB Q4H PRN PRN Reason: Shortness Of Breath/wheezing Apixaban (Apixaban 5 Mg Tab) 5 mg PO BID [facility] Last Admin: 04/25/21 10:03 Dose: 5 mg Documented by: Atenolol (Atenolol 25 Mg Tab) 100 mg PO DAILY [facility] Atorvastatin Calcium (Atorvastatin 20 Mg Tab) 20 mg PO DAILY [facility] Last Admin: 04/25/21 08:43 Dose: 20 mg Documented by: Bisacodyl (Bisacodyl 5 Mg Tab) 5 mg PO DAILY PRN PRN Reason: Constipation Bupropion HCl (Bupropion 150 Mg Tab.Er) 150 mg PO DAILY [facility] Last Admin: 04/25/21 08:44 Dose: 150 mg Documented by: Diltiazem HCl (Diltiazem Ir 30 Mg Tab) 30 mg PO Q6HR [facility] Last Admin: 04/25/21 10:03 Dose: 30 mg Documented by: Diphenhydramine HCl (Diphenhydramine 25 Mg Cap) 25 mg PO BEDTIME PRN PRN Reason: Insomnia Docusate Sodium (Docusate Sodium 100 Mg Cap) 100 mg PO BID PRN PRN Reason: Constipation Sodium Chloride (Normal Saline) 1,000 mls @ 125 mls/hr IV ASDIRECTED [facility] Last Admin: 04/24/21 23:20 Dose: 125 mls/hr Documented by: Lorazepam (Lorazepam 2 Mg/Ml Sdv) 1 mg IV Q6H PRN PRN Reason: Nausea/Vomiting Melatonin (Melatonin 3 Mg Tab) 6 mg PO BEDTIME PRN PRN Reason: Insomnia Morphine Sulfate (Morphine 2 Mg/Ml Syringe) 2 mg IVPUSH Q2H PRN PRN Reason: Pain (severe 7-10) Ondansetron HCl (Ondansetron 4 Mg Tab.Dis) 4 mg PO Q6H PRN PRN Reason: Nausea able to take PO Oxycodone HCl (Oxycodone 5 Mg Tab) 5 mg PO Q4H PRN PRN Reason: Pain (moderate 4-6) Pantoprazole Sodium (Pantoprazole 40 Mg Tab.Cr) 40 mg PO ACBREAKFAST [facility] Last Admin: 04/25/21 08:44 Dose: 40 mg Documented by: Sodium Chloride (Sodium Chloride 0.9% 10 Ml Syringe) 10 ml FLUSH ASDIRECTED PRN PRN Reason: Keep Vein Open Last Admin: 04/24/21 19:18 Dose: 10 ml Documented by: Discontinued Medications Apixaban (Apixaban 5 Mg Tab) 5 mg PO ONETIME ONE Stop: 04/24/21 21:35 Last Admin: 04/24/21 21:49 Dose: 5 mg Documented by: Atenolol (Atenolol 25 Mg Tab) 25 mg PO ONETIME ONE Stop: 04/24/21 19:19 Last Admin: 04/24/21 20:17 Dose: 25 mg Documented by: Atenolol (Atenolol 25 Mg Tab) 25 mg PO ONETIME ONE Stop: 04/24/21 21:20 Last Admin: 04/24/21 21:26 Dose: 25 mg Documented by: Atenolol (Atenolol 25 Mg Tab) 50 mg PO DAILY [facility] Last Admin: 04/25/21 08:44 Dose: 50 mg Documented by: Atenolol (Atenolol 25 Mg Tab) 50 mg PO ONETIME ONE Stop: 04/25/21 10:01 Last Admin: 04/25/21 10:04 Dose: 50 mg Documented by: Sodium Chloride (Normal Saline) 100 mls @ 3.5 mls/sec IV ASDIRECTED [facility] Last Admin: 04/24/21 20:02 Dose: 4 mls/sec Documented by: Iopamidol (Iopamidol 755 Mg/Ml 100 Ml Bottle) 100 ml IV . DIRECTED [facility] Last Admin: 04/24/21 20:01 Dose: 100 ml Documented by: Pantoprazole Sodium (Pantoprazole 40 Mg Vial) 40 mg IV DAILY [facility] Sodium Chloride (Sodium Chloride 0.9% 10 Ml Syringe) 10 ml FLUSH ONETIME ONE Stop: 04/24/21 19:18 Last Admin: 04/24/21 20:01 Dose: 10 ml Documented by: - Exam Quality Assessment: DVT Prophylaxis General: Alert, Oriented, Cooperative, No Acute Distress Lungs: Clear to Auscultation, Normal Respiratory Effort Cardiovascular: No Murmurs, Irregular Rhythm, Tachycardia GI/Abdominal Exam: Soft, Non-Tender, No Organomegaly, No Distention Back Exam: Normal Inspection, Full Range of Motion Neurological: No New Focal Deficit, Normal Speech, Normal Tone, Strength Equal Bilateral, Sensation Intact, Cranial Nerves Intact Psy/Mental Status: Alert, Normal Affect, Normal Mood - Patient Data Lab Results Last 24 hrs: Laboratory Results - last 24 hr 04/24/21 04/24/21 04/24/21 Range/Units 18:59 19:16 22:07 WBC 8.2 (4.5-11.0) K/uL RBC 4.48 (3.30-5.50) M/uL Hgb 11.3 L (12.0-15.0) g/dL Hct 36.4 (36.0-48.0) % MCV 81 (80-98) fL MCH 25 L (27-31) pg MCHC 31 L (32-36) % Plt Count 401 H (150-400) K/uL Neut % (Auto) (36-66) % Lymph % (Auto) (24-44) % [place] % (Auto) (2-6) % Eos % (Auto) (2-4) % Baso % (Auto) (0-1) % Sodium 141 (140-148) mmol/L Potassium 4.1 (3.6-5.2) mmol/L Chloride 105 (100-108) mmol/L Carbon Dioxide 27 (21-32) mmol/L Anion Gap 9.2 (5.0-14.0) mmol/L BUN 25 H (7-18) mg/dL Creatinine 1.0 (0.6-1.0) mg/dL Est Cr Clr Drug Dosing 43.07 mL/min Estimated GFR (MDRD) 54 L (>60) Glucose 128 H (74-106) mg/dL Calcium 8.7 (8.5-10.1) mg/dL Total Bilirubin (0.2-1.0) mg/dL AST (15-37) U/L ALT (12-78) U/L Alkaline Phosphatase (46-116) U/L Troponin I < 0.017 (0.000-0.056) ng/mL Total Protein (6.4-8.2) g/dL Albumin (3.4-5.0) g/dL Globulin (2.3-3.5) g/dL Albumin/Globulin Ratio (1.2-2.2) Amylase (25-115) U/L Lipase (73-393) U/L TSH, Ultra Sensitive 1.676 (0.358-3.740) uIU/mL Urine Color Yellow (YELLOW) Urine Appearance Clear (CLEAR) Urine pH 5.5 (5.0-8.0) Ur Specific [place] 1.015 (1.008-1.030) Urine Protein Negative (NEGATIVE) mg/dL Urine Glucose (UA) Negative (NEGATIVE) mg/dL Urine Ketones Negative (NEGATIVE) mg/dL Urine Occult Blood Trace-intact H (NEGATIVE) Urine Nitrite Negative (NEGATIVE) Urine Bilirubin Negative (NEGATIVE) Urine Urobilinogen 0.2 (0.2-1.0) EU/dL Ur Leukocyte Esterase Negative (NEGATIVE) Urine RBC 0-5 (0-5) Urine WBC 0-5 (0-5) Ur Epithelial Cells Rare Amorphous Sediment Not seen Urine Bacteria Few Urine Mucus Not seen 04/24/21 04/25/21 04/25/21 Range/Units 22:07 04:10 04:10 WBC 6.9 (4.5-11.0) K/uL RBC 4.21 (3.30-5.50) M/uL Hgb 10.6 L (12.0-15.0) g/dL Hct 34.6 L (36.0-48.0) % MCV 82 (80-98) fL MCH 25 L (27-31) pg MCHC 31 L (32-36) % Plt Count 367 (150-400) K/uL Neut % (Auto) 62.3 (36-66) % Lymph % (Auto) 24.8 (24-44) % [place] % (Auto) 11.2 H (2-6) % Eos % (Auto) 1.3 L (2-4) % Baso % (Auto) 0.4 (0-1) % Sodium 143 (140-148) mmol/L Potassium 4.1 (3.6-5.2) mmol/L Chloride 108 (100-108) mmol/L Carbon Dioxide 28 (21-32) mmol/L Anion Gap 7.4 (5.0-14.0) mmol/L BUN 21 H (7-18) mg/dL Creatinine 0.9 (0.6-1.0) mg/dL Est Cr Clr Drug Dosing 47.85 mL/min Estimated GFR (MDRD) > 60 (>60) Glucose 98 (74-106) mg/dL Calcium 8.4 L (8.5-10.1) mg/dL Total Bilirubin 0.9 (0.2-1.0) mg/dL AST 25 (15-37) U/L ALT 32 (12-78) U/L Alkaline Phosphatase 145 H (46-116) U/L Troponin I (0.000-0.056) ng/mL Total Protein 5.8 L (6.4-8.2) g/dL Albumin 2.8 L (3.4-5.0) g/dL Globulin 3.0 (2.3-3.5) g/dL Albumin/Globulin Ratio 0.9 L (1.2-2.2) Amylase 61 (25-115) U/L Lipase 138 (73-393) U/L TSH, Ultra Sensitive (0.358-3.740) uIU/mL Urine Color (YELLOW) Urine Appearance (CLEAR) Urine pH (5.0-8.0) Ur Specific [place] (1.008-1.030) Urine Protein (NEGATIVE) mg/dL Urine Glucose (UA) (NEGATIVE) mg/dL Urine Ketones (NEGATIVE) mg/dL Urine Occult Blood (NEGATIVE) Urine Nitrite (NEGATIVE) Urine Bilirubin (NEGATIVE) Urine Urobilinogen (0.2-1.0) EU/dL Ur Leukocyte Esterase (NEGATIVE) Urine RBC (0-5) Urine WBC (0-5) Ur Epithelial Cells Amorphous Sediment Urine Bacteria Urine Mucus Result Diagrams: 04/25/21 04:10 04/25/21 04:10 Sepsis Event Note - Evaluation Sepsis Screening Result: No Definite Risk - Focused Exam Vital Signs: Vital Signs Temp Pulse Pulse Resp BP BP Pulse Ox 04/25/21 10:04 98 124/67 04/25/21 08:44 92 124/77 04/25/21 07:46 94 L 04/25/21 07:24 96.4 F L 87 16 124/77 04/25/21 03:00 97.2 F 81 16 110/77 97 04/25/21 02:08 94 L 04/24/21 23:40 93 L 04/24/21 23:17 94 L 04/24/21 23:01 97 F 105 H 16 148/89 H 93 L 04/24/21 22:21 83 24 H 145/80 H 93 L - Problem List Review Problem List Initiated/Reviewed/Updated: Yes - My Orders Last 24 Hours: My Active Orders 04/25/21 10:00 Apixaban [Eliquis] 5 mg PO BID Diltiazem IR [Cardizem] 30 mg PO Q6HR 04/26/21 08:00 Brain w wo Cont [MR] Urgent Echo Comp wo Cont [US] Urgent 04/26/21 09:00 atenoloL [Tenormin] 100 mg PO DAILY - Plan Plan:: ASSESSMENT AND PLAN ATRIAL FIB WITH RVR- Mrs. Brown has no prior history of Atrial Fib. Denies any history of [place] or cardiac event in the past. -Saline lock IV -Telemetry -Increase atenolol to 100 mg daily -Diltiazem 30 mg p.o. every 6 hours, consider conversion to long-acting form in a.m. -Eliquis 5 mg p.o. twice daily -Echocardiogram in a.m. TIA-aphasia has resolved entirely and she denies any new or current neurologic symptoms. Exam is unremarkable. CT scan and CTA obtained in the emergency department were negative except for evidence of small vessel disease. -Echo as above -Aspirin 81 mg p.o. daily -Eliquis as above -MRI with and without contrast in a.m. -Neuro checks every 4 hours MAINTENANCE ISSUES -DVT prophylaxis; Eliquis 5 mg po bid -GI prophylaxis; not indicated -Roth catheter; not indicated -Nutrition; regular diet CODE STATUS-FULL CODE ADMISSION STATUS-patient will be admitted to inpatient status, expect at least a 2 night hospital stay for evaluation and management of problems as outlined above. At the time of this admission I do not reasonably expected evaluation and management of this problem will require more than a 96 hour hospital stay. DISPOSITION-anticipate discharge to home after the hospital stay. PRIMARY CARE PROVIDER-patient is from [facility] and receives her primary care there
[2021-04-25] MEDS: Aspirin 81 MG Tab.Chew PO SCH (15:29)
[2021-04-26] MEDS: Diltiazem IR 30 MG Tab PO SCH (03:54)
[2021-04-26] MEDS: Apixaban 5 MG Tab PO SCH (08:27)
[2021-04-26] MEDS: buPROPion 150 MG Tab.ER PO SCH (08:27)
[2021-04-26] MEDS: Aspirin 81 MG Tab.Chew PO SCH (08:27)
[2021-04-26] MEDS: atorvaSTATin 20 MG Tab PO SCH (08:27)
[2021-04-26] MEDS ORDERED: Atenolol 25 MG Tab PO SCH (09:00)
[2021-04-26] MEDS ORDERED: Diltiazem 120 MG Cap.CD PO SCH (09:30)
[2021-04-26] MEDS ORDERED: Gadoteridol 279.3 MG/ML 15 ML SDV IV SCH (10:00)
--- NOTE | 2021-04-26 10:39 | MR ---
Brain w wo Cont CLINICAL HISTORY: Stroke symptoms COMPARISON: CT head 04/24/2021 TECHNIQUE: Multiple pulse sequences were obtained through the brain in the axial, coronal, and sagittal planes both pre-and post IV contrast infusion gadolinium-based contrast. All images were obtained on a 1.5 [place] unit. FINDINGS: Diffusion images show small focus of increased signal in the DWI scan. This could be artifactual. There is no focal mass lesion. There is no hemorrhage, edema, or extraaxial collection. There are scattered T2 hyperintensities in the periventricular and subcortical white matter including the area seen on diffusion images. There is no abnormal enhancement or abnormal vascular patterns. The basal cisterns and sulci over the convexities are normal. The ventricles are normal. IMPRESSION: There is a small focus of increased signal in the diffusion DWI image. This may be artifactual. A small focus of restricted diffusion cannot be excluded Scattered focal hyperintensities on T2 and FLAIR images in the periventricular and subcortical regions is felt to represent some chronic ischemic microvascular change
--- NOTE | 2021-04-26 14:13 | PCM.DCSUM1 ---
Discharge Summary - Hospital Course Brief History: 75-year-old female with history of hypertension and high cholesterol who presented with speech difficulties. She was admitted for management of expedited work-up with possible TIA as well as rapid atrial fibrillation. Diagnosis: Stroke: No - Discharge Data Discharge Date: 04/26/21 Discharge Disposition: Home, Self-Care 01 Condition: Good - Referral to Home Health Primary Care Physician: PCP None - Discharge Diagnosis/Problem(s) (1) TIA (transient ischemic attack) SNOMED Code(s): 496250518 ICD Code: G45.9 - TRANSIENT CEREBRAL ISCHEMIC ATTACK, UNSPECIFIED Status: Suspected Current Visit: Yes (2) Atrial fibrillation with RVR SNOMED Code(s): 674928026030545 ICD Code: I48.91 - UNSPECIFIED ATRIAL FIBRILLATION Status: Acute Priority: High Current Visit: Yes - Patient Summary/Data Consults: Consultations 04/24/21 22:52 Spiritual Care Follow Up [CONS] Routine Spiritual Resources: [facility] Course: Caryn presented to the emergency room with slurred speech. Symptoms were present about 1 hour prior to getting to the emergency room and did resolve on the way here. They did recur for short while well in the emergency room and then resolved. She had an extensive work-up in the emergency room involving laboratory studies as well as a noncontrast head CT and a CT angiogram of the brain. All of these tests were unremarkable. She was noted to be in atrial fibrillation with a rapid ventricular response and heart rates in the 110-120 range. The emergency room did consult with a neurologist who recommended additional work-up including an MRI of the brain. The atrial fibrillation was new to the patient. Her calculated CHADSS-VASC score was 6. We did elect to initiate systemic anticoagulation at the time of admission. The patient was started on atorvastatin as well as apixaban. For the atrial fibrillation her atenolol was increased from 50 to 100 mg. Additionally low-dose immediate release diltiazem was initiated. This seemed to provide adequate rate control. Over the first 36 hours of the hospital stay the patient did not have any recurrence of the symptoms. Telemetry showed atrial fibrillation persisting but she had good rate control. On the morning of discharge the patient did have an echocardiogram which showed the atrial fibrillation as well as mild to moderate mitral regurgitation and an enlarged left atrium. I suspect the enlarged atrium was the culprit for the atrial fibrillation. There is no evidence for volume overload/congestive heart failure at this time. She has achieved good ra te control with the combination of atenolol and diltiazem. She did have an MRI of the brain which showed some mild chronic small vessel ischemic disease but no evidence for stroke. The speech difficulties certainly could have been related to a TIA which certainly could have been embolic in nature with the atrial fibrillation. She had been feeling unwell for 2 to 3 weeks prior to coming in and the duration of the atrial fibrillation is unknown but I suspect it was present for 2 to 3 weeks. Alternatively this may have been related to poor perfusion in the brain with the rapid atrial fibrillation. Her symptoms have resolved at this point and have not recurred. There is no definitive evidence for stroke so we elected to leave her statin medication alone. At this time we are going to continue rate control for the atrial fibrillation along with the systemic anticoagulation. She does have a cardiology follow-up planned in 5 weeks. If she remains in atrial fibrillation additional management plus or minus cardioversion could be considered. At the time of discharge the patient feels well and has no symptoms of dysarthria and no symptoms of dyspnea or chest pain. - Patient Instructions Diet: Regular Diet as Tolerated Activity: As Tolerated Showering/Bathing: May Shower Other/Special Instructions: 1. You were in the hospital to manage rapid atrial fibrillation as well as further work-up of possible transient ischemic attack. We have been able to control your heart rate using an increased dose of atenolol as well as adding diltiazem. We did also start apixaban Eliquis. This is a blood thinning medication that helps to reduce your risk of stroke with atrial f ibrillation. 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 We did not find definitive evidence that you had a stroke. This may have been a transient ischemic attack secondary to a blood clot from atrial fibrillation versus a temporary reduction in blood flow to the speech area of the brain because of the rapid atrial fibri llation. At this time I do not think you need additional follow-up with a neurologist unless you have recurrent symptoms. You should seek medical attention immediately if you have symptoms that raise concern for stroke such as speech difficulty, weakness of muscles on one side of the body or drooping of the muscles of your face on one side. 2. We did increase her atenolol to 100 mg and reduced your aspirin to 81 mg but otherwise you should continue your previous home medications as they were prescribed prior to the hospital stay. - Discharge Plan *PRESCRIPTION DRUG MONITORING PROGRAM REVIEWED*: Not Applicable *COPY OF PRESCRIPTION DRUG MONITORING REPORT IN PATIENT TIFFANIE: Not Applicable Prescriptions/Med Rec: atenoloL [Atenolol] 100 mg PO DAILY #30 tablet dilTIAZem HCL [Diltiazem 24Hr ER] 120 mg PO DAILY #30 cap.sa.24h Apixaban [Eliquis] 5 mg PO BID #60 tablet Aspirin [Halfprin] 81 mg PO DAILY #30 tab.ec Home Medications: Home Meds atorvaSTATin [Lipitor] 20 mg PO DAILY 04/24/21 [History] buPROPion HCL [Bupropion Xl] 150 mg PO DAILY 04/25/21 [History] Apixaban [Eliquis] 5 mg PO BID #60 tablet 04/26/21 [Rx] Aspirin [Halfprin] 81 mg PO DAILY #30 tab.ec 04/26/21 [Rx] atenoloL [Atenolol] 100 mg PO DAILY #30 tablet 04/26/21 [Rx] dilTIAZem HCL [Diltiazem 24Hr ER] 120 mg PO DAILY #30 cap.sa.24h 04/26/21 [Rx] Oxygen Therapy Mode: Room Air Patient Handouts: Apixaban oral tablets, Atrial Fibrillation Referrals: PCP,None [Primary Care Provider] - (follow up with your primary care as needed after the hospital stay ) - Discharge Summary/Plan Comment DC Time >30 min.: No - Patient Data Vitals - Most Recent: Last Vital Signs Temp 36.2 C 04/26/21 12:24 Pulse 52 L 04/26/21 12:24 Resp 18 04/26/21 12:24 BP 102/52 L 04/26/21 12:24 Pulse Ox 95 04/26/21 12:24 Weight - Most Recent: 82.1 kg I&O - Last 24 hours: Intake & Output 04/25/21 04/26/21 04/26/21 22:59 06:59 14:59 Intake Total 575 650 360 Balance 575 650 360 Med Orders - Current: Current Medications Acetaminophen (Acetaminophen 325 Mg Tab) 650 mg PO Q4H PRN PRN Reason: Pain (Mild 1-3)/fever Albuterol (Albuterol 0.083% 2.5 Mg/3 Ml Neb Soln) 2.5 mg NEB Q4H PRN PRN Reason: Shortness Of Breath/wheezing Apixaban (Apixaban 5 Mg Tab) 5 mg PO BID [facility] Last Admin: 04/26/21 08:27 Dose: 5 mg Documented by: Aspirin (Aspirin 81 Mg Tab.Chew) 81 mg PO DAILY [facility] [place] Last Admin: 04/26/21 08:27 Dose: 81 mg Documented by: Atenolol (Atenolol 25 Mg Tab) 100 mg PO DAILY [facility] [place] Last Admin: 04/26/21 08:27 Dose: 100 mg Documented by: Atorvastatin Calcium (Atorvastatin 20 Mg Tab) 20 mg PO DAILY [facility] [place] Last Admin: 04/26/21 08:27 Dose: 20 mg Documented by: Bisacodyl (Bisacodyl 5 Mg Tab) 5 mg PO DAILY PRN PRN Reason: Constipation Bupropion HCl (Bupropion 150 Mg Tab.Er) 150 mg PO DAILY [facility] [place] Last Admin: 04/26/21 08:27 Dose: 150 mg Documented by: Diltiazem HCl (Diltiazem 120 Mg Cap.Cd) 120 mg PO DAILY [facility] [place] Last Admin: 04/26/21 11:01 Dose: 120 mg Documented by: Diphenhydramine HCl (Diphenhydramine 25 Mg Cap) 25 mg PO BEDTIME PRN PRN Reason: Insomnia Docusate Sodium (Docusate Sodium 100 Mg Cap) 100 mg PO BID PRN PRN Reason: Constipation Lorazepam (Lorazepam 2 Mg/Ml Sdv) 1 mg IV Q6H PRN PRN Reason: Nausea/Vomiting Melatonin (Melatonin 3 Mg Tab) 6 mg PO BEDTIME PRN PRN Reason: Insomnia Morphine Sulfate (Morphine 2 Mg/Ml Syringe) 2 mg IVPUSH Q2H PRN PRN Reason: Pain (severe 7-10) Ondansetron HCl (Ondansetron 4 Mg Tab.Dis) 4 mg PO Q6H PRN PRN Reason: Nausea able to take PO Oxycodone HCl (Oxycodone 5 Mg Tab) 5 mg PO Q4H PRN PRN Reason: Pain (moderate 4-6) Sodium Chloride (Sodium Chloride 0.9% 10 Ml Syringe) 10 ml FLUSH ASDIRECTED PRN PRN Reason: Keep Vein Open Last Admin: 04/24/21 19:18 Dose: 10 ml Documented by: Discontinued Medications Apixaban (Apixaban 5 Mg Tab) 5 mg PO ONETIME ONE Stop: 04/24/21 21:35 Last Admin: 04/24/21 21:49 Dose: 5 mg Documented by: Atenolol (Atenolol 25 Mg Tab) 25 mg PO ONETIME ONE Stop: 04/24/21 19:19 Last Admin: 04/24/21 20:17 Dose: 25 mg Documented by: Atenolol (Atenolol 25 Mg Tab) 25 mg PO ONETIME ONE Stop: 04/24/21 21:20 Last Admin: 04/24/21 21:26 Dose: 25 mg Documented by: Atenolol (Atenolol 25 Mg Tab) 50 mg PO DAILY [facility] Last Admin: 04/25/21 08:44 Dose: 50 mg Documented by: Atenolol (Atenolol 25 Mg Tab) 50 mg PO ONETIME ONE Stop: 04/25/21 10:01 Last Admin: 04/25/21 10:04 Dose: 50 mg Documented by: Diltiazem HCl (Diltiazem Ir 30 Mg Tab) 30 mg PO Q6HR [facility] Last Admin: 04/26/21 03:54 Dose: 30 mg Documented by: Gadoteridol (Gadoteridol 279.3 Mg/Ml 15 Ml Sdv) 15 ml IV .A DIRECTED [facility] Last Admin: 04/26/21 09:33 Dose: 15 ml Documented by: Sodium Chloride (Normal Saline) 100 mls @ 3.5 mls/sec IV ASDIRECTED [facility] [place] Last Admin: 04/24/21 20:02 Dose: 4 mls/sec Documented by: Sodium Chloride (Normal Saline) 1,000 mls @ 125 mls/hr IV ASDIRECTED [facility] [place] Last Admin: 04/24/21 23:20 Dose: 125 mls/hr Documented by: Iopamidol (Iopamidol 755 Mg/Ml 100 Ml Bottle) 100 ml IV . DIRECTED [facility] [place] Last Admin: 04/24/21 20:01 Dose: 100 ml Documented by: Pantoprazole Sodium (Pantoprazole 40 Mg Vial) 40 mg IV DAILY [facility] Pantoprazole Sodium (Pantoprazole 40 Mg Tab.Cr) 40 mg PO ACBREAKFAST [facility] [place] Last Admin: 04/25/21 08:44 Dose: 40 mg Documented by: Sodium Chloride (Sodium Chloride 0.9% 10 Ml Syringe) 10 ml FLUSH ONETIME ONE Stop: 04/24/21 19:18 Last Admin: 04/24/21 20:01 Dose: 10 ml Documented by:
[2021-04-26 14:25] VITALS: BP 123/70; PULSE 93
== END 2021-04-26 17:00 | disposition home or self-care (01) | DRG 69 ==
LOC: JP.ED 18:47 → JP.MS 22:15
PROVIDERS: ADMIT Hospitalist; ATTEND Hospitalist
DX: I63.9 Cerebral infarction, unspecified (principal); G45.9 Transient cerebral ischemic attack, unspecified; I48.91 Unspecified atrial fibrillation; I10 Essential (primary) hypertension; E78.00 Pure hypercholesterolemia, unspecified; N93.8 Other specified abnormal uterine and vaginal bleeding; Z79.82 Long term (current) use of aspirin; Z79.899 Other long term (current) drug therapy; Z90.710 Acquired absence of both cervix and uterus
CPT/HCPCS: 36415; 70450; 70496; 70498; 80048; 81001; 82150; 83690; 84443; 84484; 85027; A9270 ×3; Q9967; 70553; 70553-26; 80053; 85025; 93306; 94762; 99285-25; A9579; J7030